=== PATIENT | male | born 1975 | race Caucasian/White ===

== ENCOUNTER 2024-05-27 06:27 | Day surgery (SDC) | payer BC ==
[2024-05-24 14:40] VITALS: BMI 23.6
[2024-05-27] MEDS ORDERED: Lidocaine 1% MPF 2 ML VIAL ONE (07:33)
[2024-05-27] MEDS ORDERED: PROPOFOL 60 ML ONE (08:39)
[2024-05-27] MEDS ORDERED: Lidocaine 1% PF 5 ML VIAL ONE (08:39)
[2024-05-27] MEDS ORDERED: PROPOFOL 20 ML ONE (09:06)
[2024-06-04 14:23] LABS: Report Refer to Pathology
== END 2024-05-27 10:40 | disposition home or self-care (01) ==
LOC: SDC 06:27
PROVIDERS: ATTEND Internal Medicine Gastroenterology
PROC: 0DBK8ZX Excision of Ascending Colon, Via Natural or Artificial Opening Endoscopic, Diagnostic (ICD-10-PCS; principal; 2024-05-27)
PROC: 0DB98ZX Excision of Duodenum, Via Natural or Artificial Opening Endoscopic, Diagnostic (ICD-10-PCS; principal; 2024-05-27)
PROC: 0DB68ZZ Excision of Stomach, Via Natural or Artificial Opening Endoscopic (ICD-10-PCS; principal; 2024-05-27)
PROC: 0DBL8ZX Excision of Transverse Colon, Via Natural or Artificial Opening Endoscopic, Diagnostic (ICD-10-PCS; principal; 2024-05-27)
PROC: 0DB78ZX Excision of Stomach, Pylorus, Via Natural or Artificial Opening Endoscopic, Diagnostic (ICD-10-PCS; principal; 2024-05-27)
PROC: 0DBL8ZZ Excision of Transverse Colon, Via Natural or Artificial Opening Endoscopic (ICD-10-PCS; principal; 2024-05-27)
PROC: 0DBM8ZX Excision of Descending Colon, Via Natural or Artificial Opening Endoscopic, Diagnostic (ICD-10-PCS; principal; 2024-05-27)
DX: D12.3 Benign neoplasm of transverse colon (principal); K52.9 Noninfective gastroenteritis and colitis, unspecified; K29.80 Duodenitis without bleeding; K31.7 Polyp of stomach and duodenum; K29.50 Unspecified chronic gastritis without bleeding; M10.9 Gout, unspecified; N43.3 Hydrocele, unspecified; R63.4 Abnormal weight loss; Z68.23 Body mass index [BMI] 23.0-23.9, adult; Z87.891 Personal history of nicotine dependence
CPT/HCPCS: 87798; 88305; 88312; J2704

== ENCOUNTER 2024-06-03 18:31 | Inpatient (IN) | payer BC ==
[2024-06-03 19:47] LABS: #Basophils 0.03 10x3/uL (0.0-0.2); %Basophils 0.7 % (0.0-1.0); %Eosinophils 7.2 % (0.0-10.0); %Lymphocytes 26.7 % (21.0-51.0); %Monocytes 5.2 % (0.0-10.0); %Neutrophils 59.5 % (42.0-75.0); Hematocrit 31.1 % (42.0-52.0); Hemoglobin 10.1 g/dL (14.0-18.0); Mean Corpuscular HGB CONC 32.5 g/dL (32.0-36.0); Mean Corpuscular Hemoglobin 26.4 pg (27.0-31.0); Mean Corpuscular Volume 81.2 fL (78.0-98.0); Mean Platelet Volume 9.7 fL (7.4-10.4); Platelet Count 249 10x3/uL (130-400); RBC Distribution Width 15.2 % (11.5-14.5); Red Blood Cell (RBC) Count 3.83 mill/uL (4.70-6.10)
[2024-06-03 20:09] LABS: ALT (SGPT) 8 U/L (8-55); AST (SGOT) 18 U/L (5-34); Albumin 2.9 g/dL (3.5-5.0); Alkaline Phosphatase 68 U/L (40-110); Anion Gap 13 mmol/L (10-20); BUN (Urea Nitrogen) 16 mg/dL (8.9-20.6); Bilirubin, Total 0.3 mg/dL (0.2-1.2); Calc. Creatinine Clearance 0 mL/min (70-130); Calcium 8.2 mg/dL (7.8-10.44); Carbon Dioxide 22 mmol/L (22-29); Chloride 105 mmol/L (98-107); Estimated GFR 103; Globulin 3.6 g/dL (2.4-3.5); Glucose 95 mg/dL (70-105); Lipase 11 U/L (8-78); Magnesium 1.5 mg/dL (1.6-2.6); Potassium 3.3 mmol/L (3.5-5.1); Protein, Total 6.5 g/dL (6.0-8.3); Sodium 137 mmol/L (136-145)
[2024-06-03] MEDS ORDERED: Calcium Carbonate 500 MG ChewTAB PO PRN (22:34)
[2024-06-03] MEDS ORDERED: Ondansetron PF 4 MG/2 ML Vial IVP PRN (22:34)
[2024-06-03] MEDS ORDERED: Potassium Chloride 20 MEQ TAB ONE (23:32)
[2024-06-03] MEDS ORDERED: Magnesium 2 GM/50 ML BAG (IN WATER) ONE (23:32)
[2024-06-04] MEDS: cefTRIAXone\\ROCEPHIN 2 GM in Sodium Chloride 0.9% 100 ML IVPB SCH ×2 (00:43→15:18)
[2024-06-04] MEDS: Potassium Chloride 20 MEQ TAB PO SCH (00:45)
[2024-06-04 01:09] VITALS: BMI 24.2
[2024-06-04 05:44] LABS: #Basophils Less than 0.03 10x3/uL (0.0-0.2); %Basophils 0.4 % (0.0-1.0); %Eosinophils 6.7 % (0.0-10.0); %Lymphocytes 18.5 % (21.0-51.0); %Monocytes 4.9 % (0.0-10.0); Hematocrit 31.6 % (42.0-52.0); Mean Corpuscular HGB CONC 31.6 g/dL (32.0-36.0); Mean Corpuscular Hemoglobin 25.5 pg (27.0-31.0); Mean Corpuscular Volume 80.6 fL (78.0-98.0); Mean Platelet Volume 10.3 fL (7.4-10.4); Platelet Count 233 10x3/uL (130-400); Red Blood Cell (RBC) Count 3.92 mill/uL (4.70-6.10)
[2024-06-04 06:29] LABS: ALT (SGPT) 7 U/L (8-55); AST (SGOT) 17 U/L (5-34); Albumin 2.7 g/dL (3.5-5.0); Alkaline Phosphatase 68 U/L (40-110); Anion Gap 13 mmol/L (10-20); BUN (Urea Nitrogen) 12 mg/dL (8.9-20.6); Bilirubin, Total 0.3 mg/dL (0.2-1.2); Calc. Creatinine Clearance 121 mL/min (70-130); Carbon Dioxide 17 mmol/L (22-29); Chloride 111 mmol/L (98-107); Estimated GFR 109; Globulin 3.3 g/dL (2.4-3.5); Glucose 91 mg/dL (70-105); Potassium 3.8 mmol/L (3.5-5.1); Sodium 137 mmol/L (136-145)
[2024-06-04] MEDS ORDERED: Sodium Bicarbonate 2.5 MEQ/5 ML SDV ONE (09:31)
[2024-06-04] MEDS ORDERED: Lidocaine 1% PF 5 ML VIAL ONE (09:31)
[2024-06-04 12:15] VITALS: BMI 24.2
[2024-06-04 12:30] LABS: CSF Source CSF; Clarity Clear (Clear); Tube # 4
[2024-06-04 12:31] LABS: CSF RBC Count - Manual 0 /cu.mm (None Seen); CSF WBC/NonHematics Count-Man 1 /cu.mm (0-5)
[2024-06-04 12:39] LABS: CSF, Glucose 44 mg/dl (40-70); CSF, Protein 24.8 mg/dL (15-40)
[2024-06-04 12:55] LABS: Color Of CSF Supernatant COLORLESS (Colorless); Tube # 1; Unspun CSF Color COLORLESS (Colorless)
[2024-06-04 13:45] LABS: Reference Lab Name LABCORP
[2024-06-04] MEDS: Acetaminophen 325 MG TAB PO PRN (15:18)
[2024-06-04] MEDS: Diphenoxylate HCl/Atropine Tablet PO PRN (17:05)
[2024-06-05] MEDS: traMADol HCl 50 MG TAB PO PRN (04:47)
[2024-06-05 08:36] VITALS: BP 110/68; TEMP 98.3
[2024-06-05] MEDS: Thiamine 100 MG TAB PO SCH (08:41)
[2024-06-05] MEDS: Multivit, Therapeutic 1 TAB PO SCH (08:41)
== END 2024-06-05 15:02 | disposition home or self-care (01) | DRG 393 ==
LOC: ERS 18:31 → SUATTDRO 18:31 → OBSVTOIN 22:33 → T4-A 22:33
PROVIDERS: ADMIT Internal Medicine; ATTEND Internal Medicine
PROC: 02HV33Z Insertion of Infusion Device into Superior Vena Cava, Percutaneous Approach (ICD-10-PCS; principal; 2024-06-04)
PROC: 009U3ZX Drainage of Spinal Canal, Percutaneous Approach, Diagnostic (ICD-10-PCS; 2024-06-04)
PROC: B01B1ZZ Fluoroscopy of Spinal Cord using Low Osmolar Contrast (ICD-10-PCS; 2024-06-04)
PROC: B5181ZA Fluoroscopy of Superior Vena Cava using Low Osmolar Contrast, Guidance (ICD-10-PCS; 2024-06-04)
PROC: B548ZZA Ultrasonography of Superior Vena Cava, Guidance (ICD-10-PCS; 2024-06-04)
DX: K90.81 Whipple's disease (principal); E43 Unspecified severe protein-calorie malnutrition; E87.6 Hypokalemia; E83.42 Hypomagnesemia; Z68.23 Body mass index [BMI] 23.0-23.9, adult; K52.9 Noninfective gastroenteritis and colitis, unspecified
CPT/HCPCS: 36415; 36573; 62270; 80053; 82945; 83605; 83690; 83735; 84157; 85025; 89051; 96374; C1751; J0696; J3475